=== PATIENT | male | born 1975 | race Caucasian/White ===

== ENCOUNTER 2022-05-10 17:19 | Observation (INO) | payer BC ==
[2022-05-10] MEDS ORDERED: Sodium Chloride 0.9% 1,000 ML IV ONE (18:17)
[2022-05-10 18:18] LABS: CHLORIDE,CL 104 mEq/L (98-106); SODIUM,NA 143 mEq/L (136-145)
[2022-05-10 18:19] LABS: ESTIMATED GFR 83 mL/min (>=60)
[2022-05-10] MEDS ORDERED: Ibuprofen 200 MG Tab PO PRN (19:56)
[2022-05-10] MEDS ORDERED: Sodium Chloride 0.9% 1,000 ML IV SCH (20:00)
[2022-05-11 06:59] LABS: AMPHETAMINES,URINE NEGATIVE (NEGATIVE); BARBITURATES,URINE NEGATIVE (NEGATIVE); BENZODIAZEPINE,URINE NEGATIVE (NEGATIVE); MDMA (ECSTASY), URINE NEGATIVE (NEGATIVE); METHADONE,URINE NEGATIVE (NEGATIVE); METHAMPHETAMINES,URINE NEGATIVE (NEGATIVE); OPIATES,URINE NEGATIVE (NEGATIVE); OXYCODONE,URINE NEGATIVE (NEGATIVE); PHENCYCLIDINE,URINE NEGATIVE (NEGATIVE); TCA,URINE NEGATIVE (NEGATIVE)
[2022-05-11] MEDS ORDERED: CHOLESTYRAMINE 5 GM PO SCH (20:00)
== END 2022-05-11 10:06 | disposition home or self-care (01) ==
LOC: CC.ED 17:19 → UNDOADMOB 19:46 → CC.MS 19:46
PROVIDERS: ADMIT Nurse Practitioner Family; ATTEND Nurse Practitioner Family
DX: T43.204A Poisoning by unspecified antidepressants, undetermined, initial encounter (principal); R00.1 Bradycardia, unspecified; Z79.899 Other long term (current) drug therapy
CPT/HCPCS: 36415; 80053; 80143; 80179; 80305-QW; 80307; 81001; 83735; 84443; 85025; 93005; 93010; 96360; 99217; 99220; 99285-25; G0378; J7030

== ENCOUNTER 2022-06-07 03:02 | Emergency (ER) | payer BC ==
[2022-06-07] MEDS ORDERED: Lactated Ringers 1,000 ML IV ONE (03:34)
== END 2022-06-07 09:45 | disposition home or self-care (01) ==
LOC: CC.ED 03:02
DX: S09.90XA Unspecified injury of head, initial encounter (principal); S00.83XA Contusion of other part of head, initial encounter; S05.11XA Contusion of eyeball and orbital tissues, right eye, initial encounter; F10.90 Alcohol use, unspecified, uncomplicated; E78.00 Pure hypercholesterolemia, unspecified; Z72.0 Tobacco use; Z79.899 Other long term (current) drug therapy; W18.30XA Fall on same level, unspecified, initial encounter; Y92.039 Unspecified place in apartment as the place of occurrence of the external cause
CPT/HCPCS: 36415; 70450; 70486; 72125; 80053; 80307; 85025; 96360; 99284; 99284-25; J7120

== ENCOUNTER 2024-04-23 18:13 | Emergency (ER) | payer BC ==
[2024-04-23 19:00] LABS: BASOPHILS ABSOLUTE AUTO 0.02 10^3/uL (0.00-0.50); BASOPHILS PERCENT AUTO 0.2 % (0-1); EOSINOPHILS ABSOLUTE AUTO 0.03 10^3/uL (0.00-1.50); EOSINOPHILS PERCENT AUTO 0.3 % (0-6); HEMATOCRIT 44.2 % (42.0-52.0); HEMOGLOBIN 15.1 g/dL (14.0-18.0); IMMATURE GRAN ABSOLUTE AUTO 0.02 10^3/uL (0.00-0.49); IMMATURE GRAN PERCENT AUTO 0.2 % (0.0-4.9); LYMPHOCYTES ABSOLUTE AUTO 1.63 10^3/uL (0.60-5.00); LYMPHOCYTES PERCENT AUTO 13.7 % (24-44); MEAN CORPUSCULAR HEMOGLOBIN 31.4 pg (27.0-32.0); MEAN CORPUSCULAR HGB CONC 34.2 g/dL (32.0-36.0); MEAN CORPUSCULAR VOLUME 91.9 fL (83.0-97.0); MONOCYTES ABSOLUTE AUTO 0.77 10^3/uL (0.00-1.50); MONOCYTES PERCENT AUTO 6.5 % (0-10); NEUTROPHILS ABSOLUTE AUTO 9.39 x10^3/uL (1.80-8.00); NEUTROPHILS PERCENT AUTO 79.1 % (41-71); PLATELET COUNT,PLT 255 10^3/uL (150-400); RED BLOOD CELL COUNT 4.81 x10^6/uL (4.50-6.00); WHITE BLOOD CELL COUNT,WBC 11.9 10^3/uL (4.0-11.0)
[2024-04-23] MEDS: Ketorolac 30 MG/ML SDV IVPUSH ONE (19:02)
[2024-04-23] MEDS: Sodium Chloride 0.9% 1,000 ML IV ONE (19:02)
[2024-04-23 19:05] LABS: APPEARANCE,URINE CLEAR (CLEAR); BILIRUBIN,URINE NEGATIVE (NEGATIVE); COLOR,URINE ORANGE (YELLOW); GLUCOSE,URINE NEGATIVE (NEGATIVE); KETONES,URINE NEGATIVE (NEGATIVE); LEUKOCYTE ESTERASE,URINE NEGATIVE (NEGATIVE); NITRITE,URINE NEGATIVE (NEGATIVE); OCCULT BLOOD,URINE NEGATIVE (NEGATIVE); PROTEIN,URINE NEGATIVE (NEGATIVE); UROBILINOGEN,URINE 0.2 EU/dL (0.2-1.0)
[2024-04-23 19:14] LABS: ALBUMIN 3.8 g/dL (3.4-5.0); BILIRUBIN TOTAL 1.3 mg/dL (0.0-1.0); C-REACTIVE PROTEIN 1.6 mg/dL (<=0.50); CALCIUM 9.1 mg/dL (8.4-10.1); CREATININE 1.3 mg/dL (0.7-1.3); EST CRCL DRUG DOSING (CG) 69.78 mL/min; POTASSIUM,K 4.1 mEq/L (3.5-5.0)
[2024-04-23] MEDS: Take Home: Cyclobenzaprine 10 MG Tab, 4 Tab Pack PO ONE (20:02)
== END 2024-04-23 20:15 | disposition home or self-care (01) ==
LOC: CC.ED 18:13
DX: N20.0 Calculus of kidney (principal); M62.830 Muscle spasm of back; E86.0 Dehydration; E78.00 Pure hypercholesterolemia, unspecified; Z79.899 Other long term (current) drug therapy; Z90.49 Acquired absence of other specified parts of digestive tract
CPT/HCPCS: 36415; 74176; 80053; 81003; 85025; 86140; 96361; 96374; 99284-25; A9270-GY; J1885; J7030

== ENCOUNTER 2024-04-28 09:18 | Day surgery (SDC) | payer BC ==
[2024-04-28] MEDS: Sodium Chloride 0.9% 250 ML IV SCH (09:36)
[2024-04-28] MEDS ORDERED: Lidocaine 2% 20 ML MDV ONE ×2 (09:40)
[2024-04-28] MEDS ORDERED: Midazolam 1 MG/ML 2 ML SDV ONE (09:40)
[2024-04-28] MEDS ORDERED: Ketamine 200 MG/20 ML MDV ONE (09:40)
[2024-04-28] MEDS ORDERED: Propofol 200 MG/20 ML SDV ONE (09:40)
[2024-04-28] MEDS ORDERED: fentaNYL 50 MCG/ML SDV ONE (09:40)
== END 2024-04-28 10:50 | disposition home or self-care (01) ==
LOC: CC.SDS 09:18
PROVIDERS: ATTEND Family Medicine
DX: R10.13 Epigastric pain (principal); K21.9 Gastro-esophageal reflux disease without esophagitis; B34.9 Viral infection, unspecified
CPT/HCPCS: 00731; 87081; J2250; J2704; J3010; J3490; J7050